=== PATIENT | male | born 1980 | race Caucasian/White ===

== ENCOUNTER 2019-06-09 12:34 | Emergency (ER) | payer OTHER, SELFPAY ==
[2019-06-09 12:44] VITALS: BP 121/75; PULSE 112; RESP 20; TEMP 37.9; O2SAT 100; BMI 25.8
--- NOTE | 2019-06-09 13:00 | ED_ITS ---
HPI - Male Genitourinary General: Chief complaint: Urogenital-Male Stated complaint: poss kidney stone Time Seen by Provider: 06/09/19 12:40 History of Present Illness: HPI Narrative: Patient complains about fever left- sided pain from low back down into the abdomen area intermittent since Thursday patient is a [facility] that has a history of fibromyalgia and posttraumatic stress disorder. Does take Cymbalta. Says he has some problems urinating has history of hypospadias. No vomiting. 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 MD Complaint: dysuria Onset (ago): day(s) Duration: constant and progressively worsening Location: left flank Severity: moderate Severity scale (1-10): 7 Quality: sharp Relieving factors: none Exacerbating factors: urination Associated symptoms: Reports fevers/chills and other (Urine is dark); Deny nausea or vomiting Review of Systems Const: Denies: fever, chills or body aches Eyes: Denies: change in vision or blurry vision ENMT: Denies: throat pain or nasal congestion Card: Denies: chest pain or shortness of breath on exertion Resp: Denies: shortness of breath, productive cough or non-productive cough GI: Denies: abdominal pain, nausea or vomiting : Reports: flank pain and difficulty urinating Musc: Denies: extremity pain Skin/Breast: Denies: rash Neuro: Denies: headache Psych: Denies: anxiety or depression Rahul/Lymph: Denies: easy bruising PFSH ED PFSH: Social History Smoking and tobacco status: former smoker Physical Exam Const: COMMON NORMALS: no apparent distress, average body habitus and oriented x3 HENMT: COMMON NORMALS: normocephalic HEAD & SCALP: normal to inspection and normocephalic FACE & SINUS: normal facial exam Eye: COMMON NORMALS: conjunctivae normal GENERAL EYE: normal appearance of both eyes CONJUNCTIVA: Yes conjunctivae normal Neck/C-Spine: COMMON NORMALS: no JVD Chest: COMMONS NORMALS: inspection of chest normal Resp: COMMON NORMALS: normal respiratory effort and clear to auscultation bilaterally AUSCULTATION: clear to auscultation bilaterally Cardio: COMMON NORMALS: no JVD and regular rhythm RATE: tachycardic RHYTHM: regular rhythm GI: COMMON NORMALS: normal to inspection, nondistended, normoactive bowel soun ds Back/Pelvis: PELVIS: Yes other (Left flank pain) COCCYX: other (Left flank pain) Extremity: COMMON NORMALS: normal to inspection and full ROM Neuro: COMMON NORMALS: oriented x3 Course Vital Signs: Vital signs: Vital Signs Temperature 100.2 F H 06/09/19 12:44 Pulse Rate 108 H 06/09/19 13:28 Respiratory Rate 14 06/09/19 13:28 Blood Pressure 121/75 06/09/19 13:28 Pulse Oximetry 99 06/09/19 13:28 MDM - Male Lab Data: Labs: Lab Results 06/09/19 Range/Units 13:15 WBC 5.1 (4.0-10.0) 10^3/ uL RBC 4.77 (4.1-5.3) 10^6/u L Hgb 14.9 (11.7-16.6) g/dL Hct 43.8 (42.0-52.0) % MCV 91.8 (80-94) fL MCH 31.2 (28.0-34.0) pg MCHC 34.0 (30.0-36.0) g/dL RDW 11.7 L (12.1-15.1) % Plt Count 207 (130-400) 10^3/c mm MPV 10.4 (7.4-10.4) fL Neut % (Auto) 88.0 % Lymph % (Auto) 5.5 % [place] % (Auto) 5.9 % Eos % (Auto) 0.0 % Baso % (Auto) 0.2 % Neut # (Auto) 4.5 (1.8-7.7) 10^3/u L Lymph # (Auto) 0.3 L (0.8-4.8) 10^3/u L [place] # (Auto) 0.3 (0.2-0.9) 10^3/u L Eos # (Auto) 0.0 (0.0-0.8) 10^3/u L Baso # (Auto) 0.0 (0.0-0.1) 10^3/u L Nucleated RBC % (a uto) 0 % Nucleated RBCs # 0.0 /100WBC Discharge Plan Discharge Prescriptions: No Action duloxetine 20 mg Capsule, Delayed Rel Sprinkle 20 mg PO DAILY RF: 0 Coding Level of Care Code ED Classified Ad Taker for Chg Fwd Exam Comprehensive
[2019-06-09 13:28] VITALS: BP 121/75; PULSE 108; RESP 14; O2SAT 99
[2019-06-09 13:42] LABS: Basophils % 0.2 %; Hematocrit 43.8 % (42.0-52.0); Hemoglobin 14.9 g/dL (11.7-16.6); Lymphocytes # 0.3 10^3/uL (0.8-4.8); Lymphocytes % 5.5 %; Mean Corpuscular Hemoglobin 31.2 pg (28.0-34.0); Mean Corpuscular Volume 91.8 fL (80-94); Mean Platelet Volume 10.4 fL (7.4-10.4); Monocytes # 0.3 10^3/uL (0.2-0.9); Monocytes % 5.9 %; Neutrophils # 4.5 10^3/uL (1.8-7.7); Nucleated Red Blood Cells % 0 %; Platelet Count 207 10^3/cmm (130-400); Red Blood Count 4.77 10^6/uL (4.1-5.3); Red Cell Distribution Width 11.7 % (12.1-15.1); White Blood Count 5.1 10^3/uL (4.0-10.0)
[2019-06-09] MEDS: sodium chloride 0.9% 1,000 ML 999 ML IV (13:46)
[2019-06-09] MEDS: cefTRIAXone 1,000 MG in sodium chloride 0.9% (plus) 50 ML 100 MG IV (13:46)
[2019-06-09] MEDS: ketorolac 30 mg/mL INJ IVP (13:46)
[2019-06-09] MEDS: ondansetron 2 mg/ML SDV 2 mL 4 MG IVP (13:55)
[2019-06-09 13:58] LABS: Alanine Aminotransferase 35 U/L (0-41); Albumin Level 4.6 g/dL (3.5-5.2); Alkaline Phosphatase 69 IU/L (40-130); Anion Gap 17.9 (5-19); Aspartate Amino Transferase 28 U/L (0-40); Blood Urea Nitrogen 14 mg/dL (6-20); Calcium 9.9 mg/dL (8.5-10.5); Carbon Dioxide 24 mmol/L (22-29); Chloride 99 mmol/L (98-107); Globulin 3.2 g/dL (1.3-4.6); Glomerular Filtration Rate 74.9 mL/min (90-130); Glucose 123 mg/dL (65-115); Osmolality Calculated 282 mOsm/kg (285-295); Potassium 3.9 mmol/L (3.5-5.1); Sodium 137 mmol/L (136-145); Total Bilirubin 0.5 mg/dL (0.15-1.2); Total Protein 7.8 g/dL (6.6-8.7)
[2019-06-09 13:59] LABS: Lactate (Lactic Acid level) 1.5 mmol/L (0.5-2.2)
[2019-06-09 14:30] VITALS: BP 123/71; PULSE 102; RESP 20; TEMP 38.9; O2SAT 100
[2019-06-09] MEDS: acetaminophen 500 mg Tablet 1000 MG PO (15:20)
--- NOTE | 2019-06-09 15:31 | CTR_ITS ---
PROCEDURE INFORMATION: Exam: CT Abdomen And Pelvis Without Contrast Exam date and time: 06/09/2019 3:32 PM Age: 38 years old Clinical indication: Pain; Other: Flank bi-lat; Additional info: Bi-lat flank pain x 3 days TECHNIQUE: Imaging protocol: Computed tomography of the abdomen and pelvis without contrast. Axial, coronal and sagittal reformatted images were created and reviewed. Total DLP: 1299.21 mGy-cm Radiation optimization: All CT scans at this facility use at least one of these dose optimization techniques: automated exposure control; mA and/or kV adjustment per patient size (includes targeted exams where dose is matched to clinical indication); or iterative reconstruction. COMPARISON: No relevant prior studies available. FINDINGS: Lungs: Mild linear stranding and groundglass at the lung bases, likely due to atelectasis. Liver: Unremarkable. Gallbladder and bile ducts: No radiodense gallstones. No biliary ductal dilatation. Pancreas: Unremarkable. Spleen: Unremarkable. Adrenals: Mild nonspecific left greater than right adrenal thickening. Kidneys and ureters: Subtle bilateral perinephric/periureteral edema. No hydronephrosis. No radiodense calculi. Stomach and bowel: Moderate amount of retained stool in the colon. No obstruction. No bowel wall thickening. No pneumatosis. Appendix: Normal. Intraperitoneal space: No free fluid. No organized fluid collection. No free air. Vasculature: Unremarkable. No aneurysm. Lymph nodes: No pathologically enlarged lymph nodes. Bladder: Mild circumferential urinary bladder wall thickening. Reproductive: Unremarkable. Bones/joints: No acute osseous abnormality. Mild degenerative changes. Soft tissues: Small, fat containing right inguinal hernia. CT/CT kidney stone [id number] IMPRESSION: 1. Limited noncontrast examination without CT evidence of urolithiasis. 2. Mild circumferential urinary bladder wall thickening and subtle bilateral perinephric/periureteral edema. Urinary tract infection could produce this appearance. Correlate with urinalysis. Acute pyelonephritis cannot be excluded without intravenous contrast. 3. Additional findings, as above. Radiation Dose CTDIVOL = (mGy): DLP = 1299.21 (mGy-cm)
[2019-06-09 15:38] LABS: Urine Appearance Clear (CLEAR); Urine Color Yellow (Yellow); pH Urine 8 (5-7)
[2019-06-09 15:39] LABS: Add Urine Microscopic? YES; Bilirubin Urine Neg (NEGATIVE); Blood Urine 2+ (Negative); Glucose Urine UA Norm (Normal); Ketones Urine Negative (Negative); Leukocyte Esterase Urine Negative (Negative); Nitrate Urine Negative (Negative); Protein Urine Neg (Negative); Sulfosalicylic Acid Urine Negative; Urobilinogen Urine Norm (Negative)
[2019-06-09 15:41] LABS: Add Urine Culture? Yes; Bacteria Urine 2+; Squamous Epithelial Cell Urine 0-4 (0-5)
[2019-06-09 16:02] LABS: Influenza A by IFA Negative (Negative); Influenza B by IFA Negative (Negative)
[2019-06-09 16:09] VITALS: BP 105/57; PULSE 77; RESP 14; TEMP 37.3; O2SAT 95
== END 2019-06-09 16:23 | disposition home or self-care (01) ==
PROVIDERS: Emergency Provider Nurse Practitioner Family; Family Provider Internal Medicine; PCP Internal Medicine
DX: N39.0 Urinary tract infection, site not specified (principal); Z87.891 Personal history of nicotine dependence
CPT/HCPCS: 12345; 36415; 74176; 80053; 81001; 83605; 85025; 87040; 87086; 87804; 96365; 96374; 96375; 99283; 99284; J0696; J1885; J2405; J7030

== ENCOUNTER 2020-02-15 15:06 | Emergency (ER) | payer OTHER, SELFPAY ==
[2020-02-15 15:41] VITALS: BP 112/68; PULSE 100; RESP 16; TEMP 37.7; O2SAT 99; BMI 25.8
--- NOTE | 2020-02-15 16:00 | ED_ITS ---
Documented by User: MICKI Morgan 02/15/20 16:02 HPI - Male Genitourinary General: Chief complaint: Urogenital-Male Stated complaint: kidney stones Time Seen by Provider: 02/15/20 15:55 History of Present Illness: HPI Narrative: Patient says he thinks he got a bladder or kidney infection. He is passed a lot of stones today which he is done in the past. Said he has had some blood in his urine but he is got chills and fever -just do not feel good. Said his urine stinks. Said he is not so much in pain just in feel good Complaint: dysuria Onset (ago): hour(s) Duration: constant and progressively worsening Severity: moderate Quality: aching Associated symptoms: Reports fevers/chills and hematuria; Deny nausea or vomiting Review of Systems Const: Reports: fever(s) and chills; Denies: body aches Eyes: Denies: change in vision or blurry vision ENMT: Denies: throat pain or nasal congestion Card: Denies: chest pain or dyspnea on exertion Resp: Denies: dyspnea, productive cough or non-productive cough GI: Denies: abdominal pain, nausea or vomiting : Reports: urinary hesitancy and hematuria Musc: Denies: extremity pain Skin/Breast: Denies: rash Neuro: Denies: headache(s) Psych: Denies: anxiety or depression Rahul/Lymph: Denies: easy bruising PFS ED PFSH: Social History (Updated 02/15/20 @ 15:46 by Omar Montalvo RN) Smoking and tobacco status: former smoker Alcohol intake: current Alcohol intake frequency: holidays/special occasions only Physical Exam Const: COMMON NORMALS: no acute distress, average body habitus and patient oriented x3 HENMT: COMMON NORMALS: normocephalic HEAD & SCALP: normal to inspection and normocephalic FACE & SINUS: normal facial exam Eye: COMMON NORMALS: conjunctivae normal GENERAL EYE: appearance normal, both eyes and all related structures CONJUNCTIVA: Yes conjunctivae normal Neck/C-Spine: COMMON NORMALS: no JVD Chest: COMMONS NORMALS: normal inspection of the chest Resp: COMMON NORMALS: normal respiratory effort and clear to auscultation bilaterally AUSCULTATION: clear to auscultation bilaterally Cardio: COMMON NORMALS: no JVD and regular rhythm RATE: tachycardic RHYTHM: regular rhythm GI: COMMON NORMALS: Normal to inspection, nondistended, normoactive bowel sounds present Extremity: COMMON NORMALS: normal to inspection and full ROM Neuro: COMMON NORMALS: patient oriented x3 Course Vital Signs: Vital signs: Vital Signs Temperature 99.9 F H 02/15/20 15:41 Pulse Rate 80 02/15/20 21:42 Respiratory Rate 18 02/15/20 18:38 Blood Pressure 102/68 02/15/20 21:42 Pulse Oximetry 96 02/15/20 21:42 MDM - Male Lab Data: Labs: Lab Results 02/15/20 02/15/20 02/15/20 Range/Units 16:50 16:50 16:50 WBC 10.0 (4.0-10.0) 10^3/ uL RBC 4.87 (4.1-5.3) 10^6/u L Hgb 15.5 (11.7-16.6) g/dL Hct 44.9 (42.0-52.0) % MCV 92.2 (80-94) fL MCH 31.8 (28.0-34.0) pg MCHC 34.5 (30.0-36.0) g/dL RDW 11.8 L (12.1-15.1) % Plt Count 234 (130-400) 10^3/c mm MPV 10.4 (7.4-10.4) fL Neut % (Auto) 88.1 % Lymph % (Auto) 5.6 % [place] % (Auto) 5.6 % Eos % (Auto) 0.1 % Baso % (Auto) 0.3 % Neut # (Auto) 8.81 H (1.8-7.7) 10^3/u L Lymph # (Auto) 0.6 L (0.8-4.8) 10^3/u L [place] # (Auto) 0.6 (0.2-0.9) 10^3/u L Eos # (Auto) 0.0 (0.0-0.8) 10^3/u L Baso # (Auto) 0.0 (0.0-0.1) 10^3/u L Nucleated RBC % (a uto) 0 % Nucleated RBCs # 0.0 /100WBC ESR (0-10) mm/hr Sodium 138 (136-145) mmol/L Potassium 4.4 (3.5-5.1) mmol/L Chloride 101 (98-107) mmol/L Carbon Dioxide 26 (22-29) mmol/L Anion Gap 15.4 (5-19) BUN 10 (6-20) mg/dL Creatinine 1.0 (0.7-1.2) mg/dL GFR Calculation 83.2 L (90-130) mL/min Glucose 117 H (65-115) mg/dL Calculated Osmolal ity 286 (285-295) mOsm/k g Lactate 1.0 (0.5-2.2) mmol/L Calcium 9.8 (8.5-10.5) mg/dL Total Bilirubin 0.6 (0.15-1.2) mg/dL AST 20 (0-40) U/L ALT 22 (0-41) U/L Alkaline Phosphata se 75 (40-130) IU/L C-Reactive Protein (0.0-4.9) mg/L Total Protein 7.8 (6.6-8.7) g/dL Albumin 4.6 (3.5-5.2) g/dL Globulin 3.2 (1.3-4.6) g/dL Procalcitonin (0-0.5) ng/mL Urine Color (Yellow) Urine Appearance (CLEAR) Urine pH (5-7) Ur Specific Gravit y (1.005-1.030) Urine Protein (Negative) Urine Glucose (UA) (Normal) Urine Ketones (Negative) Urine Blood (Negative) Urine Nitrate (Negative) Urine Bilirubin (Negative) Prot Sulfosalicyli c Acd (Negative) Urine Urobilinogen (Negative) mg/dL Ur Leukocyte Tayler ase (Negative) Urine RBC (0-2) /hpf Urine WBC (0-5) /hpf Ur Squamous Epith Cells (0-5) /hpf Amorphous Sediment Urine Bacteria (NONE) /hpf Influenza Type A A g (Negative) Influenza Type B A g (Negative) 02/15/20 02/15/20 02/15/20 Range/Units 16:50 16:50 17:52 WBC (4.0-10.0) 10^3/ uL RBC (4.1-5.3) 10^6/u L Hgb (11.7-16.6) g/dL Hct (42.0-52.0) % MCV (80-94) fL MCH (28.0-34.0) pg MCHC (30.0-36.0) g/dL RDW (12.1-15.1) % Plt Count (130-400) 10^3/c mm MPV (7.4-10.4) fL Neut % (Auto) % Lymph % (Auto) % [place] % (Auto) % Eos % (Auto) % Baso % (Auto) % Neut # (Auto) (1.8-7.7) 10^3/u L Lymph # (Auto) (0.8-4.8) 10^3/u L [place] # (Auto) (0.2-0.9) 10^3/u L Eos # (Auto) (0.0-0.8) 10^3/u L Baso # (Auto) (0.0-0.1) 10^3/u L Nucleated RBC % (a uto) % Nucleated RBCs # /100WBC ESR 25 H (0-10) mm/hr Sodium (136-145) mmol/L Potassium (3.5-5.1) mmol/L Chloride (98-107) mmol/L Carbon Dioxide (22-29) mmol/L Anion Gap (5-19) BUN (6-20) mg/dL Creatinine (0.7-1.2) mg/dL GFR Calculation (90-130) mL/min Glucose (65-115) mg/dL Calculated Osmolal ity (285-295) mOsm/k g Lactate (0.5-2.2) mmol/L Calcium (8.5-10.5) mg/dL Total Bilirubin (0.15-1.2) mg/dL AST (0-40) U/L ALT (0-41) U/L Alkaline Phosphata se (40-130) IU/L C-Reactive Protein 145.8 H (0.0-4.9) mg/L Total Protein (6.6-8.7) g/dL Albumin (3.5-5.2) g/dL Globulin (1.3-4.6) g/dL Procalcitonin 0.34 (0-0.5) ng/mL Urine Color Yellow (Yellow) Urine Appearance Hazy A (CLEAR) Urine pH 8 H (5-7) Ur Specific Gravit y 1.010 (1.005-1.030) Urine Protein Neg (Negative) Urine Glucose (UA) Norm (Normal) Urine Ketones 1+ H (Negative) Urine Blood 3+ H (Negative) Urine Nitrate Negative (Negative) Urine Bilirubin Neg (Negative) Prot Sulfosalicyli c Acd Negative (Negative) Urine Urobilinogen Norm (Negative) mg/dL Ur Leukocyte Tayler ase Trace H (Negative) Urine RBC Too numerous to c nt H (0-2) /hpf Urine WBC 15-25 H (0-5) /hpf Ur Squamous Epith Cells 0-4 H (0-5) /hpf Amorphous Sediment Not Reportable Urine Bacteria 2+ H (NONE) /hpf Influenza Type A A g (Negative) Influenza Type B A g (Negative) 02/15/20 Range/Units 19:33 WBC (4.0-10.0) 10^3/ uL RBC (4.1-5.3) 10^6/u L Hgb (11.7-16.6) g/dL Hct (42.0-52.0) % MCV (80-94) fL MCH (28.0-34.0) pg MCHC (30.0-36.0) g/dL RDW (12.1-15.1) % Plt Count (130-400) 10^3/c mm MPV (7.4-10.4) fL Neut % (Auto) % Lymph % (Auto) % [place] % (Auto) % Eos % (Auto) % Baso % (Auto) % Neut # (Auto) (1.8-7.7) 10^3/u L Lymph # (Auto) (0.8-4.8) 10^3/u L [place] # (Auto) (0.2-0.9) 10^3/u L Eos # (Auto) (0.0-0.8) 10^3/u L Baso # (Auto) (0.0-0.1) 10^3/u L Nucleated RBC % (a uto) % Nucleated RBCs # /100WBC ESR (0-10) mm/hr Sodium (136-145) mmol/L Potassium (3.5-5.1) mmol/L Chloride (98-107) mmol/L Carbon Dioxide (22-29) mmol/L Anion Gap (5-19) BUN (6-20) mg/dL Creatinine (0.7-1.2) mg/dL GFR Calculation (90-130) mL/min Glucose (65-115) mg/dL Calculated Osmolal ity (285-295) mOsm/k g Lactate (0.5-2.2) mmol/L Calcium (8.5-10.5) mg/dL Total Bilirubin (0.15-1.2) mg/dL AST (0-40) U/L ALT (0-41) U/L Alkaline Phosphata se (40-130) IU/L C-Reactive Protein (0.0-4.9) mg/L Total Protein (6.6-8.7) g/dL Albumin (3.5-5.2) g/dL Globulin (1.3-4.6) g/dL Procalcitonin (0-0.5) ng/mL Urine Color (Yellow) Urine Appearance (CLEAR) Urine pH (5-7) Ur Specific Gravit y (1.005-1.030) Urine Protein (Negative) Urine Glucose (UA) (Normal) Urine Ketones (Negative) Urine Blood (Negative) Urine Nitrate (Negative) Urine Bilirubin (Negative) Prot Sulfosalicyli c Acd (Negative) Urine Urobilinogen (Negative) mg/dL Ur Leukocyte Tayler ase (Negative) Urine RBC (0-2) /hpf Urine WBC (0-5) /hpf Ur Squamous Epith Cells (0-5) /hpf Amorphous Sediment Urine Bacteria (NONE) /hpf Influenza Type A A g Negative (Negative) Influenza Type B A g Negative (Negative) Discharge Plan Discharge Patient Disposition: Home Clinical Impression: Multiple renal calculi Urinary tract infection Qualifiers: Urinary tract infection type: acute pyelonephritis Qualified Code(s): N10 - Acute pyelonephritis Constipation Qualifiers: Constipation type: slow transit constipation Qualified Code(s): K59.01 - Slow transit constipation Condition: Stable Prescriptions: New ibuprofen 800 mg tablet 800 mg PO TID PRN (Reason: pain) Qty: 20 RF: 0 cefdinir 300 mg capsule 300 mg PO BID 10 Days Qty: 20 RF: 0 No Action duloxetine 20 mg Capsule, Delayed Rel Sprinkle 20 mg PO DAILY@0700 RF: 0 Men's Multi-Vitamin Tablet 1 tab PO DAILY@0700 RF: 0 Vitamin D3 1 tab PO DAILY@0700 RF: 0 Discharge Orders: Discharge ED (Routine); Ordered 02/15/20 Ordered By: Meaghan Petty Referrals: Nicola Phoenix MD [Primary Care Provider] - Discharge Diet: Usual diet Discharge Activity: Limit activity as instructed Patient Instructions: Kidney Stones (ED), Renal Colic (ED), Acute Hematuria (ED) Activity Restrictions/Additional Instructions: follow up with Dr Nevarez, urologist without fail, referral has been made to social service to assist with referral process. You will be contacted with appointment time and date. you will need repeat urine analysis after antibiotics to ensure infection has resolved rest at home tomorrow return to the ED if you experience worsening abdominal pain, vomiting, blood in stool, or worsening symptoms Stand Alone Forms: Work/School Release Sign Out Sign Out Data: Patient Sign Out occurred on 02/15/20 at 16:45. Patient's care was discussed, and care was transferred from to JELANI Machado. Post-Handoff Eval: 39-year-old male patient presents to the emergency department with complaints of fever, onset today, 103.6 measured at home. Dontrell hematuria reported by spouse, started yesterday with onset of back pain. Denies Covid symptoms or influenza symptoms. He reports similar symptoms in the past, [facility] that occurred in the spring of this year. He denies nausea, reports large amount of sediment/stones were passed today. He appears not feeling well. Exam findings with left CVA tenderness, back pain but not able to reproduce pain upon exam with palpation. Agree with physical exam findings of Parag Stewart NP. Serology testing pending, blood cultures obtained, CT scan abdomen pelvis renal stone protocol pending, patient will be treated for pain and nausea. Coding Level of Care Code ED Crew Team Member for Chg Fwd Exam Comprehensive Documented by User: JELANI Machado 02/15/20 22:19 HPI - Male Genitourinary General: Chief complaint: Urogenital-Male Stated complaint: kidney stones Time Seen by Provider: 02/15/20 15:55 [facility] ED PFSH: Social History (Updated 02/15/20 @ 15:46 by Omar Montalvo RN) Smoking and tobacco status: former smoker Alcohol intake: current Alcohol intake frequency: holidays/special occasions only Course ED course: 39-year-old male patient presents to the emergency department with flank pain, stated sediment versus kidney stone passage, fever. Similar symptom experienced spring 2019 with work-up but did not lead to stone diagnosis. CT scan of the abdomen and pelvis, renal stone protocol, did not reveal acute abnormality such as renal calculus or hydronephrosis, constipation was noted- Rocephin administered here in the ED due to stated fever of 103.6. Temperature here in the ED was 99.9. He was treated with morphine and Zofran/Toradol. Presumed passage of stone with UTI noted. Will be placed on Omnicef for 10 days with appropriate follow-up with Dr. Nevarez. He will need repeat urinalysis to ensure infection is cleared. Vital Signs: Vital signs: Vital Signs Temperature 99.9 F H 02/15/20 15:41 Pulse Rate 80 02/15/20 21:42 Respiratory Rate 18 02/15/20 18:38 Blood Pressure 102/68 02/15/20 21:42 Pulse Oximetry 96 02/15/20 21:42 MDM - Male Lab Data: Labs: Lab Results 02/15/20 02/15/20 02/15/20 Range/Units 16:50 16:50 16:50 WBC 10.0 (4.0-10.0) 10^3/ uL RBC 4.87 (4.1-5.3) 10^6/u L Hgb 15.5 (11.7-16.6) g/dL Hct 44.9 (42.0-52.0) % MCV 92.2 (80-94) fL MCH 31.8 (28.0-34.0) pg MCHC 34.5 (30.0-36.0) g/dL RDW 11.8 L (12.1-15.1) % Plt Count 234 (130-400) 10^3/c mm MPV 10.4 (7.4-10.4) fL Neut % (Auto) 88.1 % Lymph % (Auto) 5.6 % [place] % (Auto) 5.6 % Eos % (Auto) 0.1 % Baso % (Auto) 0.3 % Neut # (Auto) 8.81 H (1.8-7.7) 10^3/u L Lymph # (Auto) 0.6 L (0.8-4.8) 10^3/u L [place] # (Auto) 0.6 (0.2-0.9) 10^3/u L Eos # (Auto) 0.0 (0.0-0.8) 10^3/u L Baso # (Auto) 0.0 (0.0-0.1) 10^3/u L Nucleated RBC % (a uto) 0 % Nucleated RBCs # 0.0 /100WBC ESR (0-10) mm/hr Sodium 138 (136-145) mmol/L Potassium 4.4 (3.5-5.1) mmol/L Chloride 101 (98-107) mmol/L Carbon Dioxide 26 (22-29) mmol/L Anion Gap 15.4 (5-19) BUN 10 (6-20) mg/dL Creatinine 1.0 (0.7-1.2) mg/dL GFR Calculation 83.2 L (90-130) mL/min Glucose 117 H (65-115) mg/dL Calculated Osmolal ity 286 (285-295) mOsm/k g Lactate 1.0 (0.5-2.2) mmol/L Calcium 9.8 (8.5-10.5) mg/dL Total Bilirubin 0.6 (0.15-1.2) mg/dL AST 20 (0-40) U/L ALT 22 (0-41) U/L Alkaline Phosphata se 75 (40-130) IU/L C-Reactive Protein (0.0-4.9) mg/L Total Protein 7.8 (6.6-8.7) g/dL Albumin 4.6 (3.5-5.2) g/dL Globulin 3.2 (1.3-4.6) g/dL Procalcitonin (0-0.5) ng/mL Urine Color (Yellow) Urine Appearance (CLEAR) Urine pH (5-7) Ur Specific Gravit y (1.005-1.030) Urine Protein (Negative) Urine Glucose (UA) (Normal) Urine Ketones (Negative) Urine Blood (Negative) Urine Nitrate (Negative) Urine Bilirubin (Negative) Prot Sulfosalicyli c Acd (Negative) Urine Urobilinogen (Negative) mg/dL Ur Leukocyte Tayler ase (Negative) Urine RBC (0-2) /hpf Urine WBC (0-5) /hpf Ur Squamous Epith Cells (0-5) /hpf Amorphous Sediment Urine Bacteria (NONE) /hpf Influenza Type A A g (Negative) Influenza Type B A g (Negative) 02/15/20 02/15/20 02/15/20 Range/Units 16:50 16:50 17:52 WBC (4.0-10.0) 10^3/ uL RBC (4.1-5.3) 10^6/u L Hgb (11.7-16.6) g/dL Hct (42.0-52.0) % MCV (80-94) fL MCH (28.0-34.0) pg MCHC (30.0-36.0) g/dL RDW (12.1-15.1) % Plt Count (130-400) 10^3/c mm MPV (7.4-10.4) fL Neut % (Auto) % Lymph % (Auto) % [place] % (Auto) % Eos % (Auto) % Baso % (Auto) % Neut # (Auto) (1.8-7.7) 10^3/u L Lymph # (Auto) (0.8-4.8) 10^3/u L [place] # (Auto) (0.2-0.9) 10^3/u L Eos # (Auto) (0.0-0.8) 10^3/u L Baso # (Auto) (0.0-0.1) 10^3/u L Nucleated RBC % (a uto) % Nucleated RBCs # /100WBC ESR 25 H (0-10) mm/hr Sodium (136-145) mmol/L Potassium (3.5-5.1) mmol/L Chloride (98-107) mmol/L Carbon Dioxide (22-29) mmol/L Anion Gap (5-19) BUN (6-20) mg/dL Creatinine (0.7-1.2) mg/dL GFR Calculation (90-130) mL/min Glucose (65-115) mg/dL Calculated Osmolal ity (285-295) mOsm/k g Lactate (0.5-2.2) mmol/L Calcium (8.5-10.5) mg/dL Total Bilirubin (0.15-1.2) mg/dL AST (0-40) U/L ALT (0-41) U/L Alkaline Phosphata se (40-130) IU/L C-Reactive Protein 145.8 H (0.0-4.9) mg/L Total Protein (6.6-8.7) g/dL Albumin (3.5-5.2) g/dL Globulin (1.3-4.6) g/dL Procalcitonin 0.34 (0-0.5) ng/mL Urine Color Yellow (Yellow) Urine Appearance Hazy A (CLEAR) Urine pH 8 H (5-7) Ur Specific Gravit y 1.010 (1.005-1.030) Urine Protein Neg (Negative) Urine Glucose (UA) Norm (Normal) Urine Ketones 1+ H (Negative) Urine Blood 3+ H (Negative) Urine Nitrate Negative (Negative) Urine Bilirubin Neg (Negative) Prot Sulfosalicyli c Acd Negative (Negative) Urine Urobilinogen Norm (Negative) mg/dL Ur Leukocyte Tayler ase Trace H (Negative) Urine RBC Too numerous to c nt H (0-2) /hpf Urine WBC 15-25 H (0-5) /hpf Ur Squamous Epith Cells 0-4 H (0-5) /hpf Amorphous Sediment Not Reportable Urine Bacteria 2+ H (NONE) /hpf Influenza Type A A g (Negative) Influenza Type B A g (Negative) 02/15/20 Range/Units 19:33 WBC (4.0-10.0) 10^3/ uL RBC (4.1-5.3) 10^6/u L Hgb (11.7-16.6) g/dL Hct (42.0-52.0) % MCV (80-94) fL MCH (28.0-34.0) pg MCHC (30.0-36.0) g/dL RDW (12.1-15.1) % Plt Count (130-400) 10^3/c mm MPV (7.4-10.4) fL Neut % (Auto) % Lymph % (Auto) % [place] % (Auto) % Eos % (Auto) % Baso % (Auto) % Neut # (Auto) (1.8-7.7) 10^3/u L Lymph # (Auto) (0.8-4.8) 10^3/u L [place] # (Auto) (0.2-0.9) 10^3/u L Eos # (Auto) (0.0-0.8) 10^3/u L Baso # (Auto) (0.0-0.1) 10^3/u L Nucleated RBC % (a uto) % Nucleated RBCs # /100WBC ESR (0-10) mm/hr Sodium (136-145) mmol/L Potassium (3.5-5.1) mmol/L Chloride (98-107) mmol/L Carbon Dioxide (22-29) mmol/L Anion Gap (5-19) BUN (6-20) mg/dL Creatinine (0.7-1.2) mg/dL GFR Calculation (90-130) mL/min Glucose (65-115) mg/dL Calculated Osmolal ity (285-295) mOsm/k g Lactate (0.5-2.2) mmol/L Calcium (8.5-10.5) mg/dL Total Bilirubin (0.15-1.2) mg/dL AST (0-40) U/L ALT (0-41) U/L Alkaline Phosphata se (40-130) IU/L C-Reactive Protein (0.0-4.9) mg/L Total Protein (6.6-8.7) g/dL Albumin (3.5-5.2) g/dL Globulin (1.3-4.6) g/dL Procalcitonin (0-0.5) ng/mL Urine Color (Yellow) Urine Appearance (CLEAR) Urine pH (5-7) Ur Specific Gravit y (1.005-1.030) Urine Protein (Negative) Urine Glucose (UA) (Normal) Urine Ketones (Negative) Urine Blood (Negative) Urine Nitrate (Negative) Urine Bilirubin (Negative) Prot Sulfosalicyli c Acd (Negative) Urine Urobilinogen (Negative) mg/dL Ur Leukocyte Tayler ase (Negative) Urine RBC (0-2) /hpf Urine WBC (0-5) /hpf Ur Squamous Epith Cells (0-5) /hpf Amorphous Sediment Urine Bacteria (NONE) /hpf Influenza Type A A g Negative (Negative) Influenza Type B A g Negative (Negative) Imaging Data: CT Abd/Pel: Radiologist's impression: [address] [place] [address] CT Scan Report Signed Patient: Sandip Oden #: [id number] : 1980Acct#:[id number] Age/Sex: 39 / MADM Date: 02/15/20 Loc: ERRoom/Bed: Attending Dr: Ordering Provider/Ordering MD: Manjula Stewart Sr, DETACHER- Date of Service: 02/15/20 Procedure(s): CT kidney stone 71661 Accession Number(s): [id number] Report Number: [id number] PROCEDURE INFORMATION: Exam: CT Abdomen And Pelvis Without Contrast Exam date and time: 02/15/2020 4:50 PM Age: 39 years old Clinical indication: Abdominal pain; Flank; Other: Bilat; Additional info: Hematuria, HX of stones TECHNIQUE: Imaging protocol: Computed tomography of the abdomen and pelvis without contrast. Radiation optimization: All CT scans at this facility use at least one of these dose optimization techniques: automated exposure control; mA and/or kV adjustment per patient size (includes targeted exams where dose is matched to clinical indication); or iterative reconstruction. COMPARISON: CT kidney stone [id number] 06/09/2019 3:38 PM RADIATION DOSE METRICS: Total DLP (mGy-cm): 1265.04 FINDINGS: Lungs: Limited assessment of the lung bases fails to reveal evidence for active cardiopulmonary process. Liver: Unremarkable. No mass. Gallbladder and bile ducts: Normal. No calcified stones. No ductal dilation. Pancreas: Normal. No ductal dilation. Spleen: Normal. No splenomegaly. Adrenal glands: Normal. No mass. Kidneys and ureters: No visible hydronephrosis, hydroureter, ureterolithiasis, nephrolithiasis, or nephrocalcinosis. No visible ureterolithiasis. Stomach and bowel: Heavy fecal residue consistent with constipation. Nonobstructive bowel pattern. No visible adynamic or reactive ileus. Appendix: The appendix is visualized and appears noninflamed. Intraperitoneal space: No visible evidence of mesenteric lymphadenitis or active mesenteritis/panniculitis. Vasculature: The abdominal aorta is nonaneurysmal. Lymph nodes: No current visible evidence of active mesenteric or retroperitoneal lymphadenopathy. Urinary bladder: No visible bladder stone. Reproductive: Unremarkable as visualized. Bones/joints: No visible active or acute osseous pathology. Mild degenerative disease of the distal thoracic spine with mild spondylosis deformans. Soft tissues: Small right inguinal hernia containing fat only. CT/CT kidney stone 32615 IMPRESSION: 1. No visible evidence of acute abdominal or pelvic pathologic process. 2. No visible hydronephrosis, hydroureter, ureterolithiasis, nephrolithiasis, or nephrocalcinosis. 3. Constipation. 4. Small right inguinal hernia containing fat only. Radiation Dose CTDIVOL = (mGy): DLP = 1265.04 (mGy-cm) Dictated By:Elias Blanca Signed By:Elias BlancaSigncrow Date/Time:02/15/201757 DD/ 56 Discharge Plan Discharge Patient Disposition: Home Clinical Impression: Multiple renal calculi Urinary tract infection Qualifiers: Urinary tract infection type: acute pyelonephritis Qualified Code(s): N10 - Acute pyelonephritis Constipation Qualifiers: Constipation type: slow transit constipation Qualified Code(s): K59.01 - Slow transit constipation Condition: Stable Prescriptions: New ibuprofen 800 mg tablet 800 mg PO TID PRN (Reason: pain) Qty: 20 RF: 0 cefdinir 300 mg capsule 300 mg PO BID 10 Days Qty: 20 RF: 0 No Action duloxetine 20 mg Capsule, Delayed Rel Sprinkle 20 mg PO DAILY@0700 RF: 0 Men's Multi-Vitamin Tablet 1 tab PO DAILY@0700 RF: 0 Vitamin D3 1 tab PO DAILY@0700 RF: 0 Discharge Orders: Discharge ED (Routine); Ordered 02/15/20 Ordered By: Meaghan Petty Referrals: Nicola Phoenix MD [Primary Care Provider] - Discharge Diet: Usual diet Discharge Activity: Limit activity as instructed Patient Instructions: Kidney Stones (ED), Renal Colic (ED), Acute Hematuria (ED) Activity Restrictions/Additional Instructions: follow up with Dr Nevarez, urologist without fail, referral has been made to social service to assist with referral process. You will be contacted with appointment time and date. you will need repeat urine analysis after antibiotics to ensure infection has resolved rest at home tomorrow return to the ED if you experience worsening abdominal pain, vomiting, blood in stool, or worsening symptoms Stand Alone Forms: Work/School Release Sign Out Sign Out Data: Patient Sign Out occurred on 02/15/20 at 16:45. Patient's care was discussed, and care was transferred from to JELANI Machado. Post-Handoff Eval: 39-year-old male patient presents to the emergency department with complaints of fever, onset today, 103.6 measured at home. Dontrell hematuria reported by spouse, started yesterday with onset of back pain. Denies Covid symptoms or influenza symptoms. He reports similar symptoms in the past, [facility] of [facility] that occurred in the spring of this year. He denies nausea, reports large amount of sediment/stones were passed today. He appears not feeling well. Exam findings with left CVA tenderness, back pain but not able to reproduce pain upon exam with palpation. Agree with physical exam findings of Parag Stewart NP. Serology testing pending, blood cultures obtained, CT scan abdomen pelvis renal stone protocol pending, patient will be treated for pain and nausea. Coding Level of Care Code ED Crew Team Member for [place] F[address] Exam Comprehensive
[2020-02-15] MEDS: sodium chloride 0.9% 1,000 ML 125 ML IV (17:06)
[2020-02-15] MEDS: cefTRIAXone 1,000 MG in sodium chloride 0.9% (plus) 50 ML 100 MG IV (17:06)
[2020-02-15] MEDS: ondansetron 2 mg/ML SDV 2 mL 4 MG IVP (17:13)
[2020-02-15 17:18] VITALS: RESP 18; O2SAT 97
[2020-02-15 17:18] LABS: Basophils % 0.3 %; Eosinophils % 0.1 %; Hematocrit 44.9 % (42.0-52.0); Hemoglobin 15.5 g/dL (11.7-16.6); Lymphocytes # 0.6 10^3/uL (0.8-4.8); Lymphocytes % 5.6 %; Mean Corpuscular HGB Conc 34.5 g/dL (30.0-36.0); Mean Corpuscular Hemoglobin 31.8 pg (28.0-34.0); Mean Corpuscular Volume 92.2 fL (80-94); Mean Platelet Volume 10.4 fL (7.4-10.4); Monocytes # 0.6 10^3/uL (0.2-0.9); Monocytes % 5.6 %; Neutrophils # 8.81 10^3/uL (1.8-7.7); Neutrophils % 88.1 %; Nucleated Red Blood Cells % 0 %; Platelet Count 234 10^3/cmm (130-400); Red Blood Count 4.87 10^6/uL (4.1-5.3); Red Cell Distribution Width 11.8 % (12.1-15.1)
[2020-02-15] MEDS: morphine 4 mg/mL SDV 1 mL IVP (17:18)
[2020-02-15 18:13] LABS: Alanine Aminotransferase 22 U/L (0-41); Albumin Level 4.6 g/dL (3.5-5.2); Alkaline Phosphatase 75 IU/L (40-130); Anion Gap 15.4 (5-19); Aspartate Amino Transferase 20 U/L (0-40); Blood Urea Nitrogen 10 mg/dL (6-20); Calcium 9.8 mg/dL (8.5-10.5); Carbon Dioxide 26 mmol/L (22-29); Chloride 101 mmol/L (98-107); Globulin 3.2 g/dL (1.3-4.6); Glomerular Filtration Rate 83.2 mL/min (90-130); Glucose 117 mg/dL (65-115); Osmolality Calculated 286 mOsm/kg (285-295); Potassium 4.4 mmol/L (3.5-5.1); Sodium 138 mmol/L (136-145); Total Bilirubin 0.6 mg/dL (0.15-1.2); Total Protein 7.8 g/dL (6.6-8.7)
[2020-02-15 18:38] VITALS: BP 124/74; PULSE 74; RESP 18; O2SAT 94
[2020-02-15 18:51] LABS: Bilirubin Urine Neg (Negative); Blood Urine 3+ (Negative); Glucose Urine UA Norm (Normal); Ketones Urine 1+ (Negative); Nitrate Urine Negative (Negative); Protein Urine Neg (Negative); Sulfosalicylic Acid Urine Negative (Negative); Urine Appearance Hazy (CLEAR); Urine Color Yellow (Yellow); pH Urine 8 (5-7)
[2020-02-15 18:52] LABS: Add Urine Microscopic? YES; Leukocyte Esterase Urine Trace (Negative); Urobilinogen Urine Norm (Negative)
[2020-02-15 18:53] LABS: Add Urine Culture? Yes; Bacteria Urine 2+ /hpf; RBC Urine TOO NUMEROUS TO CNT /hpf (0-2); Squamous Epithelial Cell Urine 0-4 /hpf (0-5); WBC Urine 15-25 /hpf (0-5)
[2020-02-15 19:07] LABS: Erythrocyte Sedimentation Rate 25 mm/hr (0-10)
[2020-02-15 19:31] LABS: Procalcitonin 0.34 ng/mL (0-0.5)
[2020-02-15 19:39] VITALS: BP 118/61; PULSE 96; O2SAT 96
[2020-02-15 19:42] LABS: C Reactive Protein 145.8 mg/L (0.0-4.9)
[2020-02-15 20:33] LABS: Influenza A by IFA Negative (Negative); Influenza B by IFA Negative (Negative)
[2020-02-15] MEDS: ketorolac 30 mg/mL INJ 15 MG IVP (20:35)
[2020-02-15 21:42] VITALS: BP 102/68; PULSE 80; O2SAT 96
--- NOTE | 2020-02-16 09:11 | DCPLANNER ---
Addendum entered by Shantelle Maria 02/16/20 09:23: Patient has [facility] insurance, correctional case records supervisor emailed patients records to [facility] with [facility], over a secure email so that a consult could be placed for patient. Original Note: facility manager histology had message to schedule a follow up appointment for patient with Dr. Nevarez. facility manager histology called the office of Dr. Nevarez, spoke with Samira, gave clinic patients information. facility manager histology was told that patients information would be printed and reviewed. Clinic will call patient with appointment information.
--- NOTE | 2020-03-09 10:29 | DCPLANNER ---
Patient has a follow up appointment scheduled for Saturday, March 14, 2020 at 3:[address] Nevarez. Clinic will call patient with appointment information.
--- NOTE | 2020-03-29 14:28 | DCPLANNER ---
Patient had a follow up appointment for patient with Dr. Nevarez scheduled for 03.14.20 - patient did attend appointment.
== END 2020-02-15 21:43 | disposition home or self-care (01) ==
PROVIDERS: Emergency Medicine; Nurse Practitioner Family; Emergency Provider Nurse Practitioner Family; PCP Internal Medicine
DX: N20.0 Calculus of kidney (principal); K59.01 Slow transit constipation; Z87.891 Personal history of nicotine dependence
CPT/HCPCS: 12345; 74176; 80053; 81001; 83605; 84145; 85025; 85651; 86140; 87040; 87077; 87086; 87186; 87804; 96361; 96365; 96375; 99283; J0131; J0696; J1885; J2270; J2405; J7030

== ENCOUNTER 2020-02-16 07:32 | Emergency (ER) | payer OTHER, SELFPAY ==
[2020-02-16] VITALS (7 sets, daily range): BP systolic 97–136; BP diastolic 64–74; PULSE 63–103; RESP 17–18; TEMP 36.4; O2SAT 93–98; BMI 26.6
--- NOTE | 2020-02-16 07:53 | W.ED.GENADLT ---
HPI - General Adult General: Chief complaint: Urogenital-Male Stated complaint: HERE 02.15.20/SYMPTOMS WORSE W/SHARP PAIN IN HEAD Time Seen by Provider: 02/16/20 07:40 History of Present Illness: HPI narrative: Patient here complaining about just not feeling good. Was unable get his antibiotics filled yesterday. Patient said he just feels nauseous aches all over denies any fever does have some chills. Does have increased urination. Denies any sore throat loss of taste or smell denies any nasal congestion. Patient says he did feel little bit better when he went home last night but worsened during the night. No longer urinating any blood. Onset (ago): day(s) Severity: moderate Associated symptoms: Reports headache(s) and other (Chills); Deny chest pain, dyspnea, nausea, rash or vomiting Review of Systems Const: Reports: chills and body aches; Denies: fever(s) Eyes: Denies: change in vision or blurry vision ENMT: Denies: throat pain or nasal congestion Card: Denies: chest pain or dyspnea on exertion Resp: Denies: dyspnea, productive cough or non-productive cough GI: Denies: abdominal pain, nausea or vomiting : Reports: urinary frequency; Denies: difficulty urinating Musc: Reports: neck pain; Denies: extremity pain Skin/Breast: Denies: rash Neuro: Reports: headache(s) Psych: Denies: anxiety or depression Rahul/Lymph: Denies: easy bruising PFSH ED PFSH: Social History (Updated 02/15/20 @ 15:46 by Omar Montalvo RN) Smoking and tobacco status: former smoker Alcohol intake: current Alcohol intake frequency: holidays/special occasions only Physical Exam Const: COMMON NORMALS: no acute distress, average body habitus and patient oriented x3 HENMT: COMMON NORMALS: normocephalic HEAD & SCALP: normal to inspection and normocephalic FACE & SINUS: normal facial exam Eye: COMMON NORMALS: conjunctivae normal GENERAL EYE: appearance normal, both eyes and all related structures CONJUNCTIVA: Yes conjunctivae normal Neck/C-Spine: COMMON NORMALS: no JVD OTHER: Neck muscles are sore Chest: COMMONS NORMALS: normal inspection of the chest Resp: COMMON NORMALS: normal respiratory effort and clear to auscultation bilaterally AUSCULTATION: clear to auscultation bilaterally Cardio: COMMON NORMALS: no JVD, regular rate and regular rhythm RATE: regular rate RHYTHM: regular rhythm GI: COMMON NORMALS: Normal to inspection, nondistended, normoactive bowel sounds present Extremity: COMMON NORMALS: normal to inspection and full ROM Neuro: COMMON NORMALS: patient oriented x3 and CN's II-XII intact bilaterally Course Vital Signs: Vital signs: Vital Signs Temperature 97.5 F L 02/16/20 07:36 Pulse Rate 91 02/16/20 07:36 Respiratory Rate 18 02/16/20 07:36 Blood Pressure 136/73 02/16/20 07:36 Pulse Oximetry 97 02/16/20 07:36 Discharge Plan Discharge Prescriptions: No Action duloxetine 20 mg Capsule, Delayed Rel Sprinkle 20 mg PO DAILY@0700 RF: 0 Men's Multi-Vitamin Tablet 1 tab PO DAILY@0700 RF: 0 Vitamin D3 1 tab PO DAILY@0700 RF: 0 ibuprofen 800 mg tablet 800 mg PO TID PRN (Reason: pain) Qty: 20 RF: 0 cefdinir 300 mg capsule 300 mg PO BID 10 Days Qty: 20 RF: 0 Coding Level of Care Code ED Link And Link Knitting Machine Operator for Manuel Ramirez
[2020-02-16] MEDS: sodium chloride 0.9% 1,000 ML 999 ML IV (08:33)
[2020-02-16] MEDS: ondansetron 2 mg/ML SDV 2 mL 4 MG IVP (08:35)
[2020-02-16] MEDS: ketorolac 30 mg/mL INJ IVP (08:36)
[2020-02-16] MEDS: cefTRIAXone 1,000 MG in sodium chloride 0.9% (plus) 50 ML 100 MG IV (08:37)
[2020-02-16 09:08] LABS: Basophils % 0.4 %; Hematocrit 39.6 % (42.0-52.0); Hemoglobin 12.8 g/dL (11.7-16.6); Lymphocytes # 0.5 10^3/uL (0.8-4.8); Lymphocytes % 8.7 %; Mean Corpuscular HGB Conc 32.3 g/dL (30.0-36.0); Mean Corpuscular Hemoglobin 31.2 pg (28.0-34.0); Mean Corpuscular Volume 96.6 fL (80-94); Mean Platelet Volume 10.8 fL (7.4-10.4); Monocytes # 0.4 10^3/uL (0.2-0.9); Monocytes % 6.9 %; Neutrophils # 4.65 10^3/uL (1.8-7.7); Neutrophils % 83.8 %; Nucleated Red Blood Cells % 0 %; Platelet Count 185 10^3/cmm (130-400); Red Cell Distribution Width 11.7 % (12.1-15.1); White Blood Count 5.5 10^3/uL (4.0-10.0)
[2020-02-16 09:20] LABS: Alanine Aminotransferase 17 U/L (0-41); Albumin Level 3.7 g/dL (3.5-5.2); Alkaline Phosphatase 62 IU/L (40-130); Anion Gap 13.2 (5-19); Aspartate Amino Transferase 16 U/L (0-40); Blood Urea Nitrogen 16 mg/dL (6-20); Calcium 8.8 mg/dL (8.5-10.5); Carbon Dioxide 25 mmol/L (22-29); Chloride 104 mmol/L (98-107); Globulin 2.7 g/dL (1.3-4.6); Glomerular Filtration Rate 67.4 mL/min (90-130); Glucose 119 mg/dL (65-115); Osmolality Calculated 288 mOsm/kg (285-295); Potassium 4.2 mmol/L (3.5-5.1); Sodium 138 mmol/L (136-145); Total Bilirubin 0.3 mg/dL (0.15-1.2); Total Protein 6.4 g/dL (6.6-8.7)
[2020-02-16 09:23] LABS: Lactic Sepsis W/Reflex 0.9 mmol/L (0.5-2.2)
[2020-02-16 11:24] LABS: Add Urine Microscopic? YES; Bilirubin Urine Neg (Negative); Blood Urine 3+ (Negative); Glucose Urine UA Norm (Normal); Ketones Urine 1+ (Negative); Leukocyte Esterase Urine Negative (Negative); Nitrate Urine Negative (Negative); Protein Urine Neg (Negative); Urine Appearance Clear (CLEAR); Urine Color Yellow (Yellow); Urobilinogen Urine Norm (Negative)
[2020-02-16 11:25] LABS: Add Urine Culture? Yes; Bacteria Urine 1+ /hpf; Mucus Urine 1+ /hpf; RBC Urine 0-4 /hpf (0-2); WBC Urine 40-55 /hpf (0-5)
== END 2020-02-16 11:50 | disposition home or self-care (01) ==
PROVIDERS: Emergency Provider Nurse Practitioner Family; PCP Internal Medicine
DX: R11.0 Nausea (principal); R51.9 Headache, unspecified; Z87.891 Personal history of nicotine dependence; Z79.899 Other long term (current) drug therapy
CPT/HCPCS: 12345; 80053; 81001; 83605; 85025; 87040; 87086; 96361; 96365; 96375; 99283; J0696; J1885; J2405; J7030

== ENCOUNTER → 2020-03-14 15:40 | Outpatient (BNVA) | payer OTHER, SELFPAY | PROVIDERS: PCP Internal Medicine; Visit Provider Nurse Practitioner Family | DX: R31.9 Hematuria, unspecified (principal) | CPT/HCPCS: 81003; 87086 ==

== ENCOUNTER → 2020-06-05 15:58 | Outpatient (BNVA) | payer OTHER, SELFPAY | PROVIDERS: PCP Internal Medicine; Visit Provider Urology | DX: N30.00 Acute cystitis without hematuria (principal); N41.1 Chronic prostatitis; R39.198 Other difficulties with micturition | CPT/HCPCS: 81003 ==

== ENCOUNTER 2023-05-31 19:05 | Emergency (ER) | payer OTHER, SELFPAY ==
[2023-05-31] VITALS (9 sets, daily range): BP systolic 119–133; BP diastolic 79–94; PULSE 84–97; RESP 18; TEMP 36.7; O2SAT 93–98; BMI 27.3
--- NOTE | 2023-05-31 19:14 | ECG_ITS ---
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 Measurements Intervals [place] Rate: 92 P: 58 HI: 158 QRS: 38 QRSD: 85 T: 43 QT: 301 QTc: 373 Interpretive Statements SINUS RHYTHM No previous ECG available for comparison Electronically Signed On 05-31-2023 23:51:24 CDT by Jemal James M.D. [id number]
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
[2023-05-31] MEDS: methylPREDNISolone sod succ 125 mg/2 mL INJ IVP (19:21)
[2023-05-31] MEDS: ipratropium-albuterol 3 mL Neb INHALATION (19:44)
[2023-05-31 20:00] LABS: ABG PCO2 31.8 mmHg (35-45); ABG PH Result 7.46 (7.35-7.45); Arterial Blood Gas Hematocrit 49.8 % (42-52); Base Excess ABG -0.6 mmol/L (-2.0-2.0); Blood Gas Allen Test Pos; Blood Gas Sample Site Brachial, left; Blood Gas Sample Type Arterial; HCO3 ABG 22.4 mmol/L (22-26); Oxygen Device NC; PO2 ABG 68.7 mmHg (80.0-100.0); PO2 FiO2 Ratio Arterial Blood 0
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
== END 2023-05-31 21:48 | disposition home or self-care (01) ==
PROVIDERS: Emergency Provider Emergency Medicine; PCP Family Medicine
DX: T59.811A Toxic effect of smoke, accidental (unintentional), initial encounter (principal); J70.5 Respiratory conditions due to smoke inhalation; F17.220 Nicotine dependence, chewing tobacco, uncomplicated
CPT/HCPCS: 36600; 71045; 82803; 93005; 96374; 99285; J2930

== ENCOUNTER 2023-07-21 10:22 | Outpatient (CLI) | payer OTHER, SELFPAY ==
[2023-07-21 10:33] VITALS: PULSE 77; RESP 18; O2SAT 97
[2023-07-21] MEDS: albuterol 2.5 mg/3 mL Neb INHALATION (10:33)
[2023-07-21 10:38] VITALS: PULSE 74
== END 2023-07-21 10:23 | disposition home or self-care (01) ==
LOC: RT 10:23
PROVIDERS: PCP Family Medicine; Visit Provider Family Medicine
DX: J45.20 Mild intermittent asthma, uncomplicated (principal)
CPT/HCPCS: 94060; 94726; 94729; J7613

== ENCOUNTER → 2023-11-21 12:09 | Outpatient (BNVA) | payer OTHER, SELFPAY | PROVIDERS: PCP Family Medicine; Visit Provider Emergency Medicine | DX: R05.8 Other specified cough (principal) | CPT/HCPCS: 87400; 87426 ==